=== PATIENT | female | born 1960 | race Caucasian/White ===

== ENCOUNTER → 2025-01-30 06:50 | Outpatient (REF) | payer OTHER, SELFPAY | LOC: WDC 06:50 | PROVIDERS: ATTENDING PHYSICIAN Nurse Practitioner Family | DX: Z12.39 Encounter for other screening for malignant neoplasm of breast (principal); Z12.31 Encounter for screening mammogram for malignant neoplasm of breast | CPT/HCPCS: 77063; 77067 ==